=== PATIENT | male | born 1945 | race Caucasian/White ===

== ENCOUNTER 2017-10-31 12:32 | Emergency (ER) | payer MEDICARE, BC ==
[~2017-10-31] VITALS: Ht 170.2 cm; Wt 104.3 kg
[2017-10-31] MEDS ORDERED: IBUPROFEN 600 MG TABLET PO ONE (13:51)
--- NOTE | 2017-10-31 14:10 | NUR ---
Patient discharged to home in stable conditon. Written and verbal after care instructions given with RX. Patient verbalizes understanding of instructions.
[2017-10-31 14:12] VITALS: BP 152/79
[2017-10-31] MEDS ORDERED: IBUPROFEN 600 MG TABLET ONE (14:27)
== END 2017-10-31 14:13 | disposition home or self-care (01) ==
LOC: ER 12:32
DX: S60.012A Contusion of left thumb without damage to nail, initial encounter (principal); E11.9 Type 2 diabetes mellitus without complications; W07.XXXA Fall from chair, initial encounter; Y93.89 Activity, other specified; Y92.89 Other specified places as the place of occurrence of the external cause; Y99.8 Other external cause status
CPT/HCPCS: 73120; A4663